=== PATIENT | female | born 1945 | race Caucasian/White ===

== ENCOUNTER 2017-01-25 20:40 | Emergency (ER) | payer OTHER ==
[~2017-01-25] VITALS: Ht 167.6 cm; Wt 76.7 kg
--- NOTE | 2017-01-25 21:54 | ED GENERAL ADULT ---
See Addendum History of Present Illness General Chief Complaint: General Adult Stated Complaint: HIGH BP/ "JUST NOT FEELING WELL" Source: patient, family, old records Exam Limitations: no limitations Vital Signs & Intake/Output Vital Signs & Intake/Output Vital Signs Date Time Temp Pulse Resp B/P Pulse O2 O2 Flow FiO2 Ox Delivery Rate 01/258 98.0 58 18 180/110 01/25 2244 58 18 180/110 96 Room Air 01/25 2149 210/112 01/25 2100 98.0 60 18 195/99 97 Room Air Allergies Coded Allergies: Sulfa (Sulfonamide Antibiotics) (Severe, DIFFICULTY SWALLOWING, HIVES 01/25/17) Triage Note: RECEIVED 71 YO FEMALE C/O MY BLOOD PRESSURE WAS 209/113 AT [facility]. INN TRIAGE . PT ON B/P MEDS. PT DOES NOT FEEL LIKE HERSELF TODAY, LIKE I'M FLOATING. NO C/O CP/SOB. Triage Nurses Notes Reviewed? yes HPI: Patient states that for the past month and a half her blood pressure has been running high. Patient called her [facility] and spoke with the nurse at the office. The nurse that the blood pressures were fine and not to worry about them. Patient again at her oncologist today and she was told that her blood pressure was again elevated. Patient states that all day she has just not felt right. Patient cannot describe exactly what that means. Patient denies any headache or blurry vision. There is no nausea or vomiting. Patient was at [facility] to get her prescriptions filled and she checked her blood pressure there was very elevated so she came in for evaluation. Patient denies any chest pain or shortness of breath. Past History Travel History Traveled to [place] past 21 day No Medical History Any Pertinent Medical History? see below for history Neurological: NONE EENT: NONE Cardiovascular: hypertension, myocardial infarction, pacemaker Respiratory: NONE Gastrointestinal: NONE Hepatic: NONE Renal: NONE Musculoskeletal: NONE Psychiatric: NONE Endocrine: NONE Blood Disorders: NONE Cancer(s): NONE Surgical History Surgical History: non-contributory Psychosocial History What is your primary language Yi Tobacco Use: Never used ETOH Use: denies use Illicit Drug Use: denies illicit drug use Family History Hx Contributory? No Review of Systems Review of Systems Constitutional: Reports: see HPI. EENTM: Reports: no symptoms. Respiratory: Reports: no symptoms. Cardiovascular: Reports: no symptoms. GI: Reports: no symptoms. Genitourinary: Reports: no symptoms. Musculoskeletal: Reports: no symptoms. Skin: Reports: no symptoms. Neurological/Psychological: Reports: no symptoms. Hematologic/Endocrine: Reports: no symptoms. Immunologic/Allergic: Reports: no symptoms. All Other Systems: Reviewed and Negative Physical Exam Physical Exam General Appearance: well developed/nourished, alert, awake, anxious, mild distress Head: atraumatic, normal appearance Eyes: Bilateral: PERRL, EOMI. Ears, Nose, Throat: normal pharynx, normal ENT inspection, hearing grossly normal Neck: normal inspection, supple, full range of motion Respiratory: normal breath sounds, chest non-tender, no respiratory distress, lungs clear Cardiovascular: regular rate/rhythm, normal peripheral pulses Gastrointestinal: normal bowel sounds, soft, non-tender, no organomegaly Back: normal inspection, normal range of motion Extremities: normal inspection, normal capillary refill, normal range of motion, no edema Neurologic/Psych: no motor/sensory deficits, awake, alert, oriented x 3, normal gait, normal mood/affect Skin: intact, normal color, warm/dry Lymphatic: no anterior cervical marysol Core Measures ACS in differential dx? No CVA/TIA Diagnosis: No Severe Sepsis Present: No Septic Shock Present: No Progress Differential Diagnoses I considered the following diagnoses in my evaluation of the patient: [ICH, abnormality, hypertensive urgency] Plan of Care: Orders Procedure Date/time Status EKG 01/25 2201 Active URINALYSIS 01/25 2153 Complete TROPONIN LEVEL 01/25 2153 Complete COMPREHENSIVE METABOLIC PANEL 01/25 2153 Complete CBC WITHOUT DIFFERENTIAL 01/25 2153 Complete Current Medications Sig/Ct Start time Last Medication Dose Stop Time Status Admin Labetalol HCl 300 MG ONCE ONE 01/25 2330 UNVr (Trandate-Normodyne 01/25 2331 200MG Tab) Laboratory Tests 01/25/17 2222: Anion Gap 13, Estimated GFR > 60, BUN/Creatinine Ratio 30.0 H, Glucose 101 H, Calcium 10.7 H, Total Bilirubin 0.4, AST 52 H, ALT 96 H, Alkaline Phosphatase 142 H, Troponin I < 0.01, Total Protein 7.2, Albumin 4.2, Globulin 3.0, Albumin /Globulin Ratio 1.4, CBC w Diff NO MAN DIFF REQ, RBC 4.24, MCV 90.6, MCH 30.9, RDW 13.0, MPV 9.0, Gran % 50.7, Lymphocytes % 35.1, Monocytes % 9.8 H, Eosinophils % 3.6, Basophils % 0.8, Absolute Granulocytes 4.1, Absolute Lymphocytes 2.9, Absolute Monocytes 0.8 H, Absolute Eosinophils 0.3, Absolute Basophils 0.1, PUBS MCHC 34.1 01/25/172213: Urine Color STRAW, Urine Clarity CLEAR, Urine pH 6.0, Ur Specific [place] 1.020, Urine Protein NEG, Urine Ketones NEG, Urine Nitrite NEG, Urine Bilirubin NEG, Urine Urobilinogen 0.2, Ur Leukocyte Esterase TRACE H, Ur Microscopic SEDIMENT EXAMINED, Urine WBC 1-3 H, Ur Epithelial Cells RARE, Urine Hemoglobin NEG, Urine Glucose NEG Diagnostic Imaging: Viewed by Me: CT Scan. Discussed w/RAD: CT Scan. Radiology Impression: PATIENT: KAVEH STEVENSON PRESENT AGE: 71 PATIENT ACCOUNT NO: [id number] : 46 LOCATION: [facility] ORDERING PHYSICIAN: SUELLEN OLIVAS MD SERVICE DATE: 01/25/17 EXAM TYPE: CAT - CT HEAD WO IV CONTRAST EXAMINATION: CT HEAD WITHOUT CONTRAST CLINICAL INFORMATION: Hypertension. COMPARISON: CT head and cervical spine 02/15. TECHNIQUE: Contiguous axial imaging was performed from the skull base to vertex without intravenous administration of contrast. DLP: 600 mGy-cm FINDINGS: No acute intracranial abnormality. No acute intracranial hemorrhage, mass or mass effect or abnormal extra-axial fluid collections. The density within the dural venous sinuses is within normal limits. The ventricles are normal in size, without hydrocephalus. There are no focal areas of hypoattenuation within a vascular distribution to suggest acute transcortical ischemia. The basilar cisterns are patent. No acute calvarial abnormality is identified. Soft tissues appear unremarkable. The imaged paranasal sinuses and mastoid air cells are well aerated. IMPRESSION: No acute intracranial pathology. 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 <Electronically signed in Other Vendor System> SIGNED BY: MARTHA HEADLEY MD 01/25/17 7801 Initial ED EKG: SINUS RHYTHM WITH RIGHT BUNDLE BRANCH BLOCK. nEW SINCE 2007. Prior EKG: changed Hand-Off Endorsed To: CLARY ISRAEL,ADELSO Meek Endorsed Time: 2317 Pending: other (RE-EVAL) Departure Departure Disposition: STILL A PATIENT Condition: Stable Clinical Impression Primary Impression: Hypertension Referrals: CHETAN ISRAEL,OLGA Morgan (PCP/Family) Departure Forms: Customer Survey General Discharge Information Critical Care Note Critical Care Note Critical Care Time: mins: (45 MIN)
--- NOTE | 2017-01-25 22:25 | CT SCAN REPORT ---
EXAMINATION: CT HEAD WITHOUT CONTRAST CLINICAL INFORMATION: Hypertension. COMPARISON: CT head and cervical spine 02/15/2007. TECHNIQUE: Contiguous axial imaging was performed from the skull base to vertex without intravenous administration of contrast. DLP: 600 mGy-cm FINDINGS: No acute intracranial abnormality. No acute intracranial hemorrhage, mass or mass effect or abnormal extra-axial fluid collections. The density within the dural venous sinuses is within normal limits. The ventricles are normal in size, without hydrocephalus. There are no focal areas of hypoattenuation within a vascular distribution to suggest acute transcortical ischemia. The basilar cisterns are patent. No acute calvarial abnormality is identified. Soft tissues appear unremarkable. The imaged paranasal sinuses and mastoid air cells are well aerated. IMPRESSION: No acute intracranial pathology.
[2017-01-25 22:31] LABS: ABSOLUTE BASOPHIL COUNT 0.1 /CUMM (0.0-0.2); ABSOLUTE EOSINOPHIL COUNT 0.3 /CUMM (0.0-0.7); ABSOLUTE GRANULOCYTE CT 4.1 /CUMM (1.4-6.5); ABSOLUTE LYMPH COUNT 2.9 /CUMM (1.2-3.4); ABSOLUTE MONOCYTE COUNT 0.8 /CUMM (0.10-0.60); BASOPHIL % 0.8 % (0.0-2.0); EOSINOPHIL % 3.6 % (0-5); GRANULOCYTE % 50.7 % (42.2-75.2); HEMATOCRIT 38.4 % (37-47); MEAN CORPUSCULAR HGB 30.9 PG (27.0-31.0); MEAN CORPUSCULAR HGB CONC 34.1 G/DL (33.0-37.0); MEAN CORPUSCULAR VOLUME 90.6 FL (81.0-99.0); PLATELET COUNT 260 /CUMM (130-400); RED BLOOD CELL CT 4.24 /CUMM (4.20-5.40); WHITE BLOOD CELL COUNT 8.2 /CUMM (4.8-10.8)
[2017-01-26 01:21] VITALS: BP 189/87
== END 2017-01-26 01:33 ==
LOC: ERH 20:40
PROVIDERS: Emergency Medicine
DX: I10 Essential (primary) hypertension (principal)
CPT/HCPCS: 81001; 93005; 93010